=== PATIENT | female | born 1965 | race Caucasian/White ===

== ENCOUNTER → 2017-10-01 | Outpatient (CLI) | payer MEDICARE ==
[~2017-10-01] MED LIST: AMITRIPTYLINE H10 MG PO; BACLOFEN10 MG PO; GABAPENTIN300 MG PO; IOPAMIDOL 370 MG/ML 200 ML INFUS..BTL INJ ONE; LOSARTAN-HCTZ1 EAC1 PO; MELATONIN 3 MG1 EACH PO; MELOXICAM15 MG PO; OXYCODONE HCL10 MG PO; SODIUM CHLORIDE 0.9% 50ML 50 ML ONE
[2017-10-01 12:19] LABS: CREATININE, SERUM 1.04 mg/dL (0.57-1.11)
--- NOTE | 2017-10-01 16:04 | Diagnostic Imaging Report ---
PROCEDURE: CT scan of the chest WITH intravenous contrast, using standard protocol. TECHNIQUE: The chest was scanned utilizing a multidetector helical scanner from the lung apex through the level of the adrenal glands after the IV administration of 100 cc of Isovue 370. Coronal and sagittal multiplanar reformations were obtained. COMPARISON: Patients [facility], , CHEST 2 VIEWS, 10/29/2014, 11:28. INDICATIONS: RIGHT LOWER LOBE NODULE FINDINGS: Lines/tubes: None. Lungs and Airways: Minimal bilateral lower lobe dependent atelectasis. 0.7 x 0.8 x 0.7 cm mildly spiculated, noncalcified, solid pulmonary nodule in the anterior right lower lobe (series 3, image 36, sagittal, image 45 and coronal image 68). No other pulmonary nodules are identified. No consolidation, other opacities or masses. Airways are clear, without endobronchial lesions. Pleura: No effusion, or pneumothorax. Heart and mediastinum: Thyroid is unremarkable. Heart size is normal. No pericardial effusion. Minimal to mild calcification of the coronary arteries. Aorta is non-aneurysmal. Main pulmonary artery is normal in caliber. Lymph nodes: Several enlarged hilar nodes along the anteromedial right lower lobe bronchial distribution (sagittal images 51-55 and series 2, images 30-33). No other hilar, or any mediastinal or axillary adenopathy. Abdomen: Limited contrast-enhanced views of the upper abdomen show no abnormality within the visualized spleen, pancreas, or left adrenal gland. Decreased attenuation of the hepatic parenchyma compared to the spleen, consistent with steatosis Bones: No aggressive lytic lesion. Distal portion of neural stimulator wire noted in the spinal canal At the T10 level. Soft tissues are unremarkable. IMPRESSION: 1. 0.8 cm mildly spiculated solid pulmonary nodule in the anterior right lower lobe. Several enlarged hilar nodes are noted along the anteromedial right lower lobe bronchial distribution, adjacent to this nodule. Findings are suspicious for primary bronchogenic neoplasm and likely metastatic hilar adenopathy. No prior films are available for comparison. 2. No other pulmonary nodules or adenopathy are identified. 3. Hepatic steatosis. Jaison Bryson M.D. Dictated by: Jaison Bryson M.D. on 10/01/2017 at 16:08 Electronically approved by: Jaison Bryson M.D. on 10/01/2017 at 16:08
== END ==
LOC: CT 11:07
PROVIDERS: ATTEND Internal Medicine Critical Care Medicine
DX: R91.8 Other nonspecific abnormal finding of lung field (principal)
CPT/HCPCS: 36415; 71260; 82565; 84520; Q9967

== ENCOUNTER → 2019-06-09 | Outpatient (CLI) | payer MEDICARE ==
[~2019-06-09] MED LIST changes: +ASPIR 8181 MG PO; +BIOTIN2500 MCG PO; +CLOPIDOGREL75 MG PO; +COLLAGEN PLUS1 EACH PO; +DEXILANT60 MG PO; +FENOFIBRATE145 MG PO; +FISH OIL 1,001000 M1 PO; +FOLIC ACID PO; -IOPAMIDOL 370 MG/ML 200 ML INFUS..BTL INJ ONE; +LEFLUNOMIDE20 MG PO; +LOSARTAN-HCTZ1 EAC2 PO; +MELATONIN3 MG PO; +METFORMIN HCL500 MG PO; +RANEXA500 MG PO; +SIMVASTATIN20 MG PO; -SODIUM CHLORIDE 0.9% 50ML 50 ML ONE; +VITAMIN D325 MCG PO
[2019-06-09 12:47] LABS: BASOPHILS # (AUTO) 0.1 (0.0-0.1); BASOPHILS % 1.2 % (0.0-1.0); EOSINOPHILS # (AUTO) 0.2 (0.0-0.4); EOSINOPHILS % 2.5 % (0.0-6.0); HEMATOCRIT 39.7 % (34.2-44.1); LYMPHOCYTES # (AUTO) 1.8 (1.0-3.2); LYMPHOCYTES % 30.2 % (18.0-39.1); MEAN CORPUSCULAR HEMOGLOBIN 29.3 pg (28-32); MEAN CORPUSCULAR HGB CONC 32.7 g/dL (31-35); MEAN CORPUSCULAR VOLUME 89.6 fL (81-99); MONOCYTES # (AUTO) 0.5 (0.2-0.8); NEUTROPHILS # (AUTO) 3.4 (2.1-6.9); NEUTROPHILS % 56.9 % (38.7-80.0); PLATELET COUNT 287 x10e3/uL (140-360); RED BLOOD COUNT 4.43 x10e6/uL (3.6-5.1); RED CELL DISTRIBUTION WIDTH 12.8 % (11.7-14.4)
[2019-06-09 13:13] LABS: BLOOD UREA NITROGEN 14 mg/dL (7-26); BUN/CREATININE RATIO 17 (6-25); CALCIUM 9.8 mg/dL (8.4-10.2); CARBON DIOXIDE 24 mmol/L (22-29); CHLORIDE 103 mmol/L (98-107); CREATININE, SERUM 0.81 mg/dL (0.57-1.11); EST GLOMERULAR FILTRATION RATE > 60 ML/MIN (60-); GLUCOSE 126 mg/dL (74-118); SODIUM 138 mmol/L (136-145)
== END ==
LOC: DX 14:48 → EDSTATUS 06-13 08:00
PROVIDERS: ATTEND Specialist
DX: Z01.818 Encounter for other preprocedural examination (principal); M25.852 Other specified joint disorders, left hip; Z53.8 Procedure and treatment not carried out for other reasons
CPT/HCPCS: 36415; 80048; 85025